=== PATIENT | female | born 1965 | race Hispanic/Latino ===

== ENCOUNTER 2018-01-12 22:39 | Emergency (ER) | payer OTHER | END 2018-01-12 23:20 | disposition left against medical advice (07) | LOC: ER 22:39 | DX: R30.0 Dysuria (principal); Z53.21 Procedure and treatment not carried out due to patient leaving prior to being seen by health care provider ==

== ENCOUNTER → 2018-02-20 | Outpatient (CLI) | payer OTHER ==
--- NOTE | 2018-02-20 13:29 | US ---
Study: Pelvic ultrasound. Indication:PELVIC PAIN Technique: Multiplanar grayscale sonographic images of the pelvis obtained transabdominally Comparison: None. Impression: Uterus and ovaries not visualized consistent with surgical history of prior resection. No free pelvic fluid or adnexal mass identified. Electronically signed by: Mauro Chandra MD 02/20/2018 1:27 PM CDT
== END ==
LOC: US 08:30
PROVIDERS: ATTEND Obstetrics & Gynecology
DX: R10.2 Pelvic and perineal pain (principal)

== ENCOUNTER → 2019-06-16 | Outpatient (CLI) | payer OTHER ==
--- NOTE | 2019-06-16 17:11 | CT ---
EXAM: Abdomen/Pelvis w/Contrast CLINICAL HISTORY: LLQ PAIN R/O DIVERTICULITIS COMPARISON STUDY: Pelvic ultrasound February 20, 2018 TECHNICAL: Post contrast images were performed through the abdomen and pelvis. Sagittal and coronal reconstructions were obtained. FINDINGS: The visible portion of the chest is negative. The heart is not enlarged. The liver, spleen, pancreas, adrenal glands, and kidneys enhance appropriately and demonstrate no acute abnormality. The gallbladder is intact and there is no evidence of biliary dilatation. There is no bowel obstruction or free air. There is no acute inflammatory process. The appendix is visible and normal. The aorta, IVC and retroperitoneum are negative. There is a small fat-containing umbilical hernia. Structures within the pelvis are negative. The uterus is absent. The visible osseous structures are negative. IMPRESSION: 1. NO ACUTE INTRA-ABDOMINAL OR PELVIC ABNORMALITY. 2. NO DIVERTICULA AND NO PERICOLONIC INFLAMMATION. 3. SMALL FAT-CONTAINING UMBILICAL HERNIA. This exam was performed according to our departmental dose-optimization program, which includes automated exposure control, adjustment of the mA and/or kV according to patient size and/or use of iterative reconstruction technique. Electronically signed by: Laith West MD 06/16/2019 5:09 PM [facility]
== END ==
LOC: LAB.O 15:33
PROVIDERS: ATTEND Nurse Practitioner
DX: K42.9 Umbilical hernia without obstruction or gangrene (principal)